=== PATIENT | female | born 1975 | race Caucasian/White ===

== ENCOUNTER 2019-09-25 05:24 | Emergency (ER) | payer OTHER ==
[~2019-09-25] VITALS: Ht 157.5 cm; Wt 78.9 kg
== END 2019-09-25 11:54 | disposition home or self-care (01) ==
LOC: ER 05:24
DX: R42 Dizziness and giddiness (principal)

== ENCOUNTER 2019-10-15 23:10 | Inpatient (IN) | payer OTHER ==
[~2019-10-15] VITALS: Ht 157.5 cm; Wt 78.9 kg
--- NOTE | 2019-10-15 23:29 | NUR ---
SE RECIBE PTE ALERTA Y ORIENTADA POR JOSE AMBULANDO. PTE REFIERE PRESENTAR DOLOR EN CUADRANTE INFERIOR DERECHO DEL ABDOMEN Y NAUSEAS DESDE LAS 9:00PM.
--- NOTE | 2019-10-15 23:53 | NUR ---
MRS FEDER[facility] ORIENTA A PT SOBRE TX, REFIERE ENTENDER. LE COLECTA MUESTRAS, CANALIZA Y ADMINISTRA MEDICAMENTOS WENDY PRESCRITOS BAJO MEDIDAS ASEPTICAS PT TOLERA SE NOTIFICA SONOGRAMA.
--- NOTE | 2019-10-16 04:33 | NUR ---
PT RE EVALUADA POR DR ELLIOT BECKHAMIEN ORDENA IVFS, LABS Y CT. SE ORIENTA A PT SOBRE TX REFIERE ENTENDER. SE LE COLECTAN MUESTRAS BAJO MEDIDAS ASEPTICAS Y SE LE ADMINISTRA MEDICAMENTO WENDY PRESCRITO EN PARTE SUPERIOR EXTERNA DE GLUTEO LT. PT COMIENZA A INGERIR CONTRASTE GASTROVIEW.
--- NOTE | 2019-10-16 07:33 | NUR ---
PACIENTE ALERTA Y ORIENTADA X3 REFIERE DOLOR ABDOMINAL EN LADO RT, SE NOTIFICA A DR. ZARATE QUIEN REFIERE ADMINISTRAR MEDICAMENTO LUEGO DE ESTUDIO DE CT. PACIENTE PENDIENTE A ESTUDIO. CANALIZACION PATENTE SAYRA DE EDEMA Y ERITEMA.
--- NOTE | 2019-10-16 12:31 | NUR ---
SE ORIENTA A PTE SOBRE PROCESO DE SONAL DE LABORATORIOS Y REALIZACION DE PLACAS Y EKG.
[2019-10-18] MEDS ORDERED: CIPRO500 MG PO (14:48)
== END 2019-10-18 15:03 | disposition home or self-care (01) | DRG 343 ==
LOC: ER 23:10 → SURG 10-16 12:37 → O/R 10-16 12:37 → SURG 10-16 18:00
PROVIDERS: ADMIT Surgery
PROC: 0DTJ0ZZ Resection of Appendix, Open Approach (ICD-10-PCS; principal; 2019-10-16 13:30)
DX: K35.890 Other acute appendicitis without perforation or gangrene (principal); N20.0 Calculus of kidney; E66.09 Other obesity due to excess calories; E78.49 Other hyperlipidemia